=== PATIENT | male | born 1960 | race Caucasian/White ===

== ENCOUNTER 2021-11-12 02:07 | Inpatient (IN) | payer BC, OTHER ==
[~2021-11-12] VITALS: Ht 182.9 cm; Wt 115.2 kg
--- NOTE | 2021-11-12 06:22 | NUR ---
PT ARRIVED TO 2125 VIA EMS FROM [facility] AT 0530. PT A&O X3. FAMILY PRESENT WITH PT. HEPARIN GTT INFUSING UPON ARRIVAL.
[2021-11-13 04:36] LABS: HEMOGLOBIN 13.2 gm/dl (14.0-17.5); RED BLOOD COUNT 4.41 M/UL (4.20-5.50); WHITE BLOOD COUNT 7.7 K/UL (4.5-11.0)
[2021-11-13 04:50] LABS: BUN/CREATININE RATIO 17 (0-10)
[2021-11-14 08:10] LABS: HEMOGLOBIN 13.6 gm/dl (14.0-17.5); RED BLOOD COUNT 4.62 M/UL (4.20-5.50); WHITE BLOOD COUNT 7.3 K/UL (4.5-11.0)
[2021-11-14 09:01] LABS: BUN/CREATININE RATIO 19 (0-10)
[2021-11-14] MEDS ORDERED: COZAAR 25MG TAB25 MG PO (13:14)
[2021-11-14] MEDS ORDERED: VITAMIN D21250 MCG PO (13:14)
[2021-11-14] MEDS ORDERED: AMLODIPINE BESY10 MG PO (13:14)
[2021-11-14] MEDS ORDERED: METOPROLOL SUC100 MG PO (15:55)
[2021-11-14] MEDS ORDERED: COZAAR50 MG PO (15:55)
[2021-11-14] MEDS ORDERED: ASPIRIN 325MG325 MG PO (15:58)
== END 2021-11-14 18:09 | disposition home or self-care (01) | DRG 280 ==
LOC: CCU 05:35 → MED SURG 4 05:35
PROVIDERS: Internal Medicine; ADMIT Internal Medicine
PROC: B24BZZZ Ultrasonography of Heart with Aorta (ICD-10-PCS; 2021-11-12)
PROC: 4A023N7 Measurement of Cardiac Sampling and Pressure, Left Heart, Percutaneous Approach (ICD-10-PCS; principal; 2021-11-13)
PROC: B2111ZZ Fluoroscopy of Multiple Coronary Arteries using Low Osmolar Contrast (ICD-10-PCS; 2021-11-13)
DX: I21.4 Non-ST elevation (NSTEMI) myocardial infarction (principal); I50.43 Acute on chronic combined systolic (congestive) and diastolic (congestive) heart failure; J96.01 Acute respiratory failure with hypoxia; J18.9 Pneumonia, unspecified organism; Z20.822 Contact with and (suspected) exposure to COVID-19; F17.210 Nicotine dependence, cigarettes, uncomplicated; I44.4 Left anterior fascicular block; E87.6 Hypokalemia; E66.01 Morbid (severe) obesity due to excess calories; E78.5 Hyperlipidemia, unspecified; Z96.652 Presence of left artificial knee joint; I08.1 Rheumatic disorders of both mitral and tricuspid valves; I25.10 Atherosclerotic heart disease of native coronary artery without angina pectoris; I11.0 Hypertensive heart disease with heart failure; Z79.82 Long term (current) use of aspirin; Z91.14 Patient's other noncompliance with medication regimen; Z82.49 Family history of ischemic heart disease and other diseases of the circulatory system; Z88.1 Allergy status to other antibiotic agents; Z88.8 Allergy status to other drugs, medicaments and biological substances; Z68.35 Body mass index [BMI] 35.0-35.9, adult
CPT/HCPCS: ECHO; 36415; 71045; 71046; 80048; 80053; 80061; 80307; 82550; 82553; 83036; 83735; 83880; 84100; 84439; 84443; 84484; 85027; 85730; 86140; 87040; 93005; 93306; 99152; 99153; C1769; C1887; C1894; J0360; J0696; J1644; J1940; J2250; J3010; J7040; Q9967